=== PATIENT | male | born 1980 | race Caucasian/White ===

== ENCOUNTER 2019-04-10 13:58 | Observation (INO) ==
[2019-04-10] MEDS ORDERED: Isovue-370 500 ML BOTTLE IVP ONE (14:12)
[2019-04-10] MEDS ORDERED: *HR* LORazepam 0.5 MG TABLET PO ONE (14:22)
[2019-04-10] MEDS ORDERED: *HR* FentaNYL (PF) 100 MCG/2 ML VIAL IVP ONE (14:22)
[2019-04-10] MEDS ORDERED: 0.9 % Sodium Chloride 1,000 ML IVC ONE (14:22)
[2019-04-10 14:39] LABS: Basophils % 0.3 %; Eosinophils # 0.1 K/mcL (0.0-0.6); Eosinophils % 0.5 %; Hematocrit 46.8 % (37.5-50.1); Hemoglobin 15.7 g/dL (12.9-16.9); Immature Granulocytes % 0.4 % (0-4); Lymphocytes # 3.2 K/mcL (0.6-4.6); Mean Corpuscular HGB Conc 33.5 g/dL (31.6-35.5); Mean Corpuscular Hemoglobin 29.6 pg (28.0-33.3); Mean Corpuscular Volume 88.3 fL (83.0-100.0); Mean Platelet Volume 10.3 fL (9.4-12.4); Monocytes # 1.1 K/mcL (0.0-1.3); Monocytes % 8.4 %; Platelet Count 262 K/mcL (140-400); Red Cell Distribution Width 12.9 % (11.5-14.5); Segmented Neutrophils % 64.4 %; White Blood Count 12.5 K/mcL (4.3-11.1)
[2019-04-10 14:54] LABS: INR 0.9; Prothrombin Time 10.5 Seconds (9.4-12.1)
[2019-04-10 14:57] LABS: Activated Partial Thrombo Time 33.2 Seconds (26.0-36.0)
[2019-04-10 15:24] LABS: BUN/Creatinine Ratio 7 (6-26); Blood Urea Nitrogen 7 mg/dL (6-20); Calcium 9.7 mg/dL (8.6-10.3); Carbon Dioxide 18 mEq/L (23-29); Chloride 106 mEq/L (98-107); Glucose 103 mg/dL (70-105); Osmolality,Calculated 282 (280-300); Sodium 137 mEq/L (136-145); Troponin I < 0.03 ng/mL (< 0.04); eGFR For African Americans > 60 (> 60); eGFR For Non-African Americans > 60 (> 60)
[2019-04-10] MEDS ORDERED: Metoclopramide 10 MG/2 ML VIAL IVP ONE (15:45)
[2019-04-10] MEDS ORDERED: Ketorolac 15 MG/ML VIAL IVP ONE (15:45)
--- NOTE | 2019-04-10 15:57 | Emergency Department Note ---
Disposition Clinical Impression: Arm paresthesia, right Chest pain Qualifiers: Chest pain type: unspecified Qualified Code(s): R07.9 - Chest pain, unspecified Headache Qualifiers: Headache type: unspecified Headache chronicity pattern: acute headache Intractability: not intractable Qualified Code(s): R51 - Headache Disposition: Admitted As Inpatient Condition: Fair Referrals: Radha Amaro APN [Primary Care Provider] - Forms: ED Satisfaction Letter Time of Disposition: 16:15 General Adult HPI - General Chief complaint: ED Neuro Symptoms/Deficit Stated complaint: PERRY,CP Time Seen by Provider: 04/10/19 14:10 Source: patient Mode of arrival: ambulatory Limitations: no limitations Nursing Notes Reviewed: Yes Vital Signs Reviewed: Yes - History of Present Illness HPI Narrative: 38-year-old male presents to the emergency department with left-sided facial weakness right-sided weakness and numbness as well as some chest pain. Patient states the yesterday he actually was seen at [facility] emergency department yesterday had a CT which was normal and then they sent him home for anxiety. They said that his symptoms as kids continue they never did have any relief and x-ray gotten worse. He said that he feels a [place] having more tingling/paresthesias in his right extremities. He said he has not noticed any facial droop at this time he said the chest pain is still getting continued says nothing seems to have helped with that. He is had no nausea no vomiting he has no shortness of breath. Patient otherwise has no other complaints at this time. He has no history of cardiac issues never had stents placed. He is describing the chest pain as a 7 out of 10 nonradiating in the right side of his chest Pain Scale: 10 - Related Data Allergies Allergy/AdvReac Type Severity Reaction Status Date / Time No Known Allergies Allergy Verified 04/10/19 01:47 All systems ED: reviewed and negative except as stated. Review of Systems: As Per HPI Past Medical History - Past Medical History Attestation: Yes The following information was validated with the patient. Source: patient Medical history: Reports: hypertension, migraine - Social History Smoking Status: Current every day smoker Smokeless Tobacco Status: No Alcohol use: Reports: none Drug use: Reports: none Physical Exam - General Limitations: no limitations General appearance: alert - Head Head exam: atraumatic, normocephalic, normal inspection - Eye Eye exam: Present: normal appearance, PERRL, EOMI - ENT ENT exam: normal exam, normal oropharynx, mucous membranes moist - Neck Neck exam: Present: normal inspection, full ROM, trachea midline - Chest Chest inspection: Present: normal inspection, symmetric chest wall rise - Respiratory Respiratory exam: Present: normal lung sounds bilaterally - Cardiovascular Cardiovascular exam: Present: regular rate, normal rhythm, normal heart sounds - Abdominal Exam Abdominal exam: Present: soft, Non-Tender, normal bowel sounds. Absent: tenderness, distention, guarding, rebound, rigidity - Extremities Exam Extremities exam: Present: normal inspection, full ROM. Absent: tenderness, pedal edema - Back Exam Back exam: Present: normal inspection, full ROM. Absent: tenderness, CVA te nderness (R), CVA tenderness (L) - Neurological Exam Neurological exam: Present: alert, oriented X3, CN II-XII intact, normal gait. Absent: motor sensory deficit - Expanded Neurological Exam Patient oriented to: Present: person, place, time Speech: Present: fluid speech Cranial nerves: EOM function (II, III, IV, ): Normal, facial sensation (V): Normal, facial palsy (VII): Normal, spinal accessory function (XI): Normal, tongue deviation (XII): Normal Cerebellar function: finger to nose: Normal, heel to salas: Normal Cerebellar function: normal gait Motor strength - LUE: 4/5 Motor strength - RUE: 4/5 Motor strength - LLE: 4/5 Motor strength - RLE: 4/5 Upper motor neuron exam: zoey neglect: Absent bilaterally, pronator drift: Absent bilaterally Sensory exam upper extremity: light touch: Normal Sensory exam lower extremity: light touch: Normal Coma Scale Eye Opening: Spontaneous Coma Scale Motor Response: Obeys Commands Coma Scale Verbal Response: Oriented Coma Scale Total: 15 - Skin Skin exam: Present: warm, dry, intact, normal color Course Vital Signs Temperature 98.1 F 04/10/19 13:59 Pulse Rate 105 04/10/19 13:59 Respiratory Rate 20 04/10/19 13:59 Blood Pressure 130/78 04/10/19 13:59 O2 Sat by Pulse Oximetry 100 04/10/19 13:59 Temperature 98.1 F 04/10/19 13:59 Pulse Rate 26 04/10/19 15:18 Respiratory Rate 16 04/10/19 15:18 Blood Pressure 122/71 04/10/19 15:18 O2 Sat by Pulse Oximetry 100 04/10/19 15:18 Oxygen Delivery Oxygen Delivery Room Air Medical Decision Making - [facility] Narrative Medical decision making narrative: Patient presented here with chest pain is radiating into his back as well as some generalized paresthesias and weakness. He was outside the TPA window as he started yesterday and continued to get worse so a stroke alert was not called. I did get CT of the head which came back with no acute abnormalities. There was possibility for aortic dissection so we did get a dissection study of the aorta which had no acute findings. Labs can back no acute findings chest x-ray no findings troponin was negative all other lites were normal. EKG did show some ST depressions but there is no old one to compare with so is difficult to know if these are new or old. Patient was given fentanyl as well as Zofran for pain and nausea. Patient does say he has a migraine she was given Reglan as well as Benadryl. Patient was given aspirin here in the emergency department. Patient needs further workup of his chest pain as well as these paresthesias that he is feeling. Due to this we will admit the patient. I spoke with Dr. malagon who agreed to admit the patient to their service. Patient is admitted in stable condition. Chest X-Ray 04/10/19 14:11 IMPRESSION: No acute pneumonia. D/ / Gunnar Martinez MD / Gunnar Martinez MD Interpreting Provider: Gunnar Martinez MD Dissection 04/10/19 14:12 IMPRESSION: 1. No acute process within the chest, abdomen, or pelvis. 2. Mild atherosclerotic disease of the thoracoabdominal aorta, without aneurysm or dissection. 3. Scattered subcentimeter pulmonary nodules throughout both lungs, the largest measuring 6 mm on average within left upper lobe. While these are likely benign, further follow-up of these nodules is as advised below. 4. Cholelithiasis. RECOMMENDATIONS: Fleischner Society guidelines for follow-up and management of incidentally detected pulmonary nodules: Multiple Solid Nodules: Nodule size less than 6 mm In a low-risk patient, no routine follow-up. In a high-risk patient, optional CT at 12 months. Radiology 2017 http://pubs.rsna.org/doi/full/10.1148/radiol.[email or web address] D/ / 04/10/2019 15:06:54 Vj Akbar MD / clau Interpreting Provider: Vj Akbar MD Head CT 04/10/19 14:13 IMPRESSION: No acute intracranial abnormality. D/ / Claudia Rosenberg MD / Claudia Rosenberg MD Interpreting Provider: Claudia Rosenberg MD - Medical Records Medical records reviewed: Yes I reviewed the patient's medical records. - Lab Data Lab results reviewed: Yes I reviewed the patient's lab results. Result diagrams: 04/10/19 14:25 04/10/19 14:25 Lab Results 04/10/19 04/10/19 04/10/19 Range/Units 14:25 14:25 14:25 WBC 12.5 H (4.3-11.1) K/mcL RBC 5.30 (4.19-5.50) M/mcL Hgb 15.7 (12.9-16.9) g/dL Hct 46.8 (37.5-50.1) % MCV 88.3 (83.0-100.0) fL MCH 29.6 (28.0-33.3) pg MCHC 33.5 (31.6-35.5) g/dL RDW 12.9 (11.5-14.5) % Plt Count 262 (140-400) K/mcL MPV 10.3 (9.4-12.4) fL Immature Gran % 0.4 (0-4) % Seg Neutrophils % 64.4 % Lymphocytes % 26.0 % Monocytes % 8.4 % Eosinophils % 0.5 % Basophils % 0.3 % Neutrophils # 8.0 (1.6-8.9) K/mcL Lymphocytes # 3.2 (0.6-4.6) K/mcL Monocytes # 1.1 (0.0-1.3) K/mcL Eosinophils # 0.1 (0.0-0.6) K/mcL Basophils # 0.0 (0.0-0.2) K/mcL PT 10.5 (9.4-12.1) Seconds INR 0.9 APTT 33.2 (26.0-36.0) Seconds Sodium 137 (136-145) mEq/L Potassium 3.0 L (3.5-5.1) mEq/L Chloride 106 (98-107) mEq/L Carbon Dioxide 18 L (23-29) mEq/L BUN 7 (6-20) mg/dL Creatinine 1.05 (0.70-1.30) mg/dL Est GFR ( Amer) > 60 (> 60) Est GFR (Non-Af Amer) > 60 (> 60) BUN/Creatinine Ratio 7 (6-26) Glucose 103 (70-105) mg/dL Calculated Osmolality 282 (280-300) Calcium 9.7 (8.6-10.3) mg/dL Troponin I < 0.03 (< 0.04) ng/mL - Radiology Data Radiology results reviewed: Yes I reviewed the patient's radiology results. - EKG Data EKG #1 EKG attestation: Yes I reviewed and interpreted this EKG. EKG results narrative: EKG done at 1401 review myself and the attending shows sinus tachycardia rate of 104, QRS 94, QTc 511. There is no acute ST elevations there is ST depressions in the lateral leads no other signs of ischemia and no T-wave abnormalities. No hypertrophy, heart strain, heart block. No WPW/Brugada/HOCM. No old EKG to compare with Attestation Statement - Attestation Attestation: I, Clarence Boyer, examined this patient and my medical decision-making was reviewed with the INSTRUCTIONAL PARAPROFESSIONAL/PA/Advanced Practice Nurse/Resident Physician. I agree with the documented findings, disposition and treatment plan as described except to the extent set forth below. 38-year-old male presents emergency Department with multiple concerns. Patient states he was evaluated yesterday for severe headacheassociated with bilateral p aresthesias. He received a CT of the head at that time, they stated his blood pressure was significantly elevated, they treated his pain and blood pressure and then sent him home at that time. Patient presents again today because he had drooping of the left side of his face and was associated with paresthesias. Patient is a difficult historian however he states the paresthesias and weakness for worse on the left side compared to the right. He denies recent trauma. There has been no hematochezia, hematemesis or melena. He also reported having pain in the left side of his chest. We obtained a CTA of his chest abdomen pelvis to rule out aortic dissection secondary to the elevated blood pressures and chest pain. This was negative for acute pathology. CT of the head did not show evidence of intracranial hemorrhage. EKG showed mild ST depressions in the lateral leads however did not show evidence of STEMI. Initial troponin was negative. He was given aspirin and will be admitted to the hospital for further care and evaluation. Patient is comfortable with this plan of action.
[2019-04-10] MEDS ORDERED: Aspirin 81 MG TAB.CHEW PO ONE (16:01)
[2019-04-10] MEDS ORDERED: Ondansetron 4 MG/2 ML VIAL IVP PRN (16:28)
[2019-04-10] MEDS ORDERED: Naloxone 0.4 MG/ML INJ IVP PRN (16:28)
[2019-04-10] MEDS ORDERED: SUMAtriptan succinate 25 MG TABLET PO PRN (16:49)
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
[2019-04-10] MEDS: Ringers Solution, Lactated 1,000 ML IVC SCH ×2 (21:47→22:03)
[2019-04-10] MEDS: Potassium Chloride Elixir 20 MEQ/15 ML UDC PO SCH ×2 (21:48→21:53)
[2019-04-10] MEDS ORDERED: Potassium Chloride Elixir 20 MEQ/15 ML UDC PO ONE (21:50)
[2019-04-11 02:29] LABS: Amphetamine Screen,Urine Positive ng/mL (Cutoff=1000); Barbiturate Screen,Urine Negative ng/mL (Cutoff=200); Benzodiazepines Screen,Urine Negative ng/mL (Cutoff=200); Cannabinoid Screen,Urine Positive ng/mL (Cutoff = 50); Cocaine Screen,Urine Negative ng/mL (Cutoff= 300); Opiate Screen,Urine Negative ng/mL (Cutoff=300); Phencyclidine Screen,Urine Negative ng/mL (Cutoff=25)
[2019-04-11 02:54] LABS: Basophils % 0.3 %; Eosinophils # 0.2 K/mcL (0.0-0.6); Eosinophils % 1.8 %; Hematocrit 46.1 % (37.5-50.1); Hemoglobin 15.1 g/dL (12.9-16.9); Immature Granulocytes % 0.2 % (0-4); Lymphocytes # 3.2 K/mcL (0.6-4.6); Lymphocytes % 35.1 %; Mean Corpuscular HGB Conc 32.8 g/dL (31.6-35.5); Mean Corpuscular Hemoglobin 30.4 pg (28.0-33.3); Mean Corpuscular Volume 92.9 fL (83.0-100.0); Mean Platelet Volume 10.5 fL (9.4-12.4); Monocytes # 0.6 K/mcL (0.0-1.3); Monocytes % 6.8 %; Neutrophils # 5.2 K/mcL (1.6-8.9); Platelet Count 219 K/mcL (140-400); Red Blood Count 4.96 M/mcL (4.19-5.50); Red Cell Distribution Width 13.2 % (11.5-14.5); Segmented Neutrophils % 55.8 %; White Blood Count 9.2 K/mcL (4.3-11.1)
[2019-04-11 04:12] LABS: BUN/Creatinine Ratio 7 (6-26); Blood Urea Nitrogen 7 mg/dL (6-20); Calcium 8.9 mg/dL (8.6-10.3); Carbon Dioxide 22 mEq/L (23-29); Chloride 113 mEq/L (98-107); Chol/HDL Ratio 5.7 (0-4.9); Cholesterol 170 mg/dL (< 200); Glucose 104 mg/dL (70-105); HDL Cholesterol 30 mg/dL (40-59); LDL Cholesterol,Calculated 105 mg/dL (0-99); Magnesium 2.1 mg/dL (1.6-2.6); Osmolality,Calculated 290 (280-300); Potassium 4.3 mEq/L (3.5-5.1); Sodium 141 mEq/L (136-145); Triglycerides 177 mg/dL (< 150); eGFR For African Americans > 60 (> 60); eGFR For Non-African Americans > 60 (> 60)
[2019-04-11 06:26] LABS: Estimated Average Glucose 111 mg/dl
[2019-04-11 07:19] VITALS: BP 126/89
[2019-04-11] MEDS ORDERED: Aspirin Enteric Coated 81 MG Tablet PO SCH (09:00)
[2019-04-11] MEDS ORDERED: Cholecalciferol (D-3) 1,000 UNIT (25MCG) TABLET PO SCH (09:00)
--- NOTE | 2019-04-11 10:19 | Discharge Summary ---
- NOTES TO OUTPATIENT PROVIDER Notes to Outpatient Provider: Follow up with Neurology for complicated migraine Orders not resulted at time of discharge: Pending orders 04/10/19 14:11 ECG 12 lead ECG [ECG] Stat Date of Encounter: 04/11/19 Time of Encounter: 08:00 - Discharge Diagnosis (1) Headache Priority: Primary Status: Acute Qualifiers: Headache type: unspecified Headache chronicity pattern: acute headache Intractability: not intractable Qualified Code(s): R51 - Headache (2) MARIA DE JESUS (acute kidney injury) Priority: Secondary Status: Acute (3) Chest pain Priority: Secondary Status: Ruled-out Qualifiers: Chest pain type: unspecified Qualified Code(s): R07.9 - Chest pain, unspecified (4) Paresthesia of left arm Priority: Secondary Status: Acute (5) Tobacco abuse Priority: Secondary Status: Chronic (6) HLD (hyperlipidemia) Priority: Secondary Status: Chronic Qualifiers: Hyperlipidemia type: unspecified Qualified Code(s): E78.5 - Hyperlipidemia, unspecified (7) DVT prophylaxis Priority: Secondary Status: Acute Hospital course: Mr. Tomlinson is a 38 year old male with history of hyperlipidemia and tobacco/marijuana abuse, who was admitted for intractable headache associated with N/V and L UE paresthesia. CT unremarkable, MRI showed nonspecific T2 FLAIR hyperintensity in supratentorial white matter ? Sequelae of migraine. Symptomatically improved with supportive measures including imitrex and he will be discharged on Topiramate 25mg QD and PRN imitrex with Neurology follow up as outpatient. Discharge discussed with: patient, nurse - Time Spent with Patient Total time spent providing and/or coordinating discharge services: 32 mins - Discharge Medications Prescriptions: New SUMAtriptan succinate [Imitrex] 25 mg PO Q2H PRN #30 tablet PRN Reason: Migraine Headache Topiramate 25 mg PO DAILY #30 tablet Continued Simvastatin [Zocor] 20 mg PO HS Cholecalciferol (Vitamin D3) [Vitamin D3] 1,000 unit PO DAILY Discontinued Topamax Home Medications: Cholecalciferol (Vitamin D3) [Vitamin D3] 1,000 unit PO DAILY 04/10/19 [History] Simvastatin [Zocor] 20 mg PO HS 04/10/19 [History] SUMAtriptan succinate [Imitrex] 25 mg PO Q2H PRN #30 tablet 04/11/19 [Rx] Topiramate 25 mg PO DAILY #30 tablet 04/11/19 [Rx] Allergies/Adverse Reactions: Allergy/AdvReac Type Severity Reaction Status Date / Time No Known Allergies Allergy Verified 04/10/19 01:47 Date of admission: 04/10/19 17:43 Primary care physician: Radha Amaro APN - Constitutional Vitals: Temp Pulse Resp BP Pulse Ox 98.0 F 84 16 126/89 99 04/11/19 08:43 04/11/19 08:43 04/11/19 08:43 04/11/19 08:43 04/11/19 07:00 Exam: General: Alert and oriented, not in distress Lungs: clear to auscultation, no wheezes/rales Abdomen:Soft, non-tender, no rigidity. Extremities:No deformity or swelling Neurological:CN II-XII intact, power and sensation fully intact in all 4 limbs. No cerebellar signs, pronator drift -ve, Babinski downgoing bilaterally - Patient Status Disposition: Home, Self-Care Condition: Fair Functional capacity at discharge: independent ambulation Overall status at discharge: patient is progressing back to baseline - Discharge Instructions Follow Up With: Radha Amaro APN [Primary Care Provider] - Juan Lobo DO [Partnered Physician] - - Diet and Activity Activity: resume usual activities as tolerated Diet: regular diet
--- NOTE | 2019-04-11 14:10 | Electrocardiograph Report ---
[facility] Test Date: 2019-04-10 Pat Name: Navi Tomlinson Department: EXAM5 Room: 3B66 Gender: M Laundry Folder: : 1980 Requested By: Auige Lowery Order Number: [id number] Reading MD: Yovani Wharton Measurements Intervals [place] Rate: 104 P: 77 VA: 149 QRS: 43 QRSD: 94 T: 8 QT: 388 QTc: 511 Interpretive Statements Sinus tachycardia Prolonged QT interval Electronically Signed On 04-11-2019 14:08:53 EDT by Yovani Wharton
[2019-04-11] MEDS ORDERED: Pantoprazole 40 MG VIAL IVP SCH (17:24)
== END 2019-04-11 10:39 | disposition home or self-care (01) ==
LOC: EMEROOARM 13:58 → 3BNU 13:58 → SUATTDRO 17:43 → 3BNU 18:12
PROVIDERS: ADMIT Student in an Organized Health Care Education/Training Program; ATTEND Internal Medicine